=== PATIENT | female | born 1980 | race Caucasian/White ===

== ENCOUNTER 2016-11-25 10:58 | Emergency (ER) | payer OTHER ==
[~2016-11-25] VITALS: Ht 149.9 cm; Wt 59.0 kg
[2016-11-25 11:03] VITALS: BP 146/68; PULSE 94; RESP 18; TEMP 97.7; O2SAT 99
[2016-11-25] MEDS ORDERED: SODIUM CHLOR 0.9% 1000 ML INJ 1,000 ML IV ONE (11:49)
[2016-11-25] MEDS ORDERED: ONDANSETRON HCL 4 MG/2 ML VIAL IV PUSH ONE (12:00)
[2016-11-25] MEDS ORDERED: DIAZEPAM 5 MG TAB PO ONE (12:00)
[2016-11-25] MEDS ORDERED: diphenhydrAMINE HCL 50 MG/ML VIAL IVP ONE (12:00)
[2016-11-25] MEDS ORDERED: NARA2.5T PO (12:05)
--- NOTE | 2016-11-25 12:58 | PD ---
HPI Chief Complaint: Headache Time Seen by Provider: 12:00 Travel History International Travel<30 days: No Contact w/Intl Traveler<30days: No Traveled to known affect area: No History of Present Illness HPI 36-year-old female with history of migraines presents for evaluation of headache. Symptoms started this morning. She describes it as a pulsating right -sided frontal/occipital headache which is constant, associated with nausea, vomiting and photophobia. She reports that her current headache is consistent with her history of migraines. She has similar headaches about twice a month. She typically uses a triptan based medication to abort her migraine however she vomited up today which prompted evaluation. She is currently on vacation from [facility]. Denies recent illness, blurred vision, chest pain or shortness of breath, fevers or chills, abdominal pain. No other complaints. PFSH Past Medical History Migraines: Yes ?: Not LMP: LATE-OCTOBER 2016 Past Surgical History Surgical History: No Previous Surgery Social History Alcohol Use: No Tobacco Use: No Substance Use: No Allergies-Medications (Allergen,Severity, Reaction): Coded Allergies: Compazine (Verified Adverse Reaction, Unknown, AKASTHESIA, 11/25/16) PT REFUSES TO TAKE IT. Reported Meds & Prescriptions Reported Meds & Active Scripts Active Reported Naratriptan (Naratriptan HCl) 2.5 Mg Tab 2.5 Mg PO ONCE PRN May be repeated once after 4 hours, for a maximum of 5 mg in a 24-hour period. Review of Systems Except as stated in HPI: all other systems reviewed are Neg Physical Exam Narrative GENERAL: Well-developed well-nourished female in no acute distress SKIN: Warm and dry. HEAD: Atraumatic. Normocephalic. EYES: Pupils equal and round. No scleral icterus. No injection or drainage. ENT: No nasal bleeding or discharge. Mucous membranes pink and moist. NECK: Trachea midline. No JVD. CARDIOVASCULAR: Regular rate and rhythm. No murmur appreciated. RESPIRATORY: No accessory muscle use. Clear to auscultation. Breath sounds equal bilaterally. GASTROINTESTINAL: Abdomen soft, non-tender, nondistended. MUSCULOSKELETAL: No obvious deformities. NEUROLOGICAL: Awake and alert. No obvious cranial nerve deficits. Motor grossly within normal limits. Normal speech. Neck supple with full range of motion. Data Data Last Documented VS Vital Signs Date Time Temp Pulse Resp B/P Pulse Ox O2 Delivery O2 Flow Rate FiO2 11/25/16 12:25 Room Air 11/25/16 11:03 97.7 94 18 146/68 99 Orders Iv Access Insert/Monitor (11/25/16 11:49) Diphenhydramine Inj (Benadryl Inj) (11/25/16 12:00) Sodium Chlor 0.9% 1000 Ml Inj (Ns 1000 M (11/25/16 11:49) Ondansetron Inj (Zofran Inj) (11/25/16 12:00) Diazepam (Valium) (11/25/16 12:00) Ed Urine Pregnancytest Poc (11/25/16 11:49) MDM Medical Decision Making Medical Screen Exam Complete: Yes Emergency Medical Condition: Yes Medical Record Reviewed: Yes Differential Diagnosis Migraine without aura, tension headache, cluster headache, subarachnoid hemorrhage, pseudotumor cerebri, shingles, temporal arteritis Narrative Course 36-year-old female with long-standing history of migraines presents with a right -sided pulsating headache, nausea, vomiting, photophobia which started today, this is consistent with her previous migraines. Plan is to treat her symptomatically with IV Zofran, fluids, Benadryl, Toradol, Valium. Upon examination the patient continues to have a persistent right-sided headache. Morphine has been administered. She reports that the nausea is improved and she is declining any prescription for nausea medicine. She is stable for discharge into the care of her . Diagnosis Primary Impression: Migraine Qualified Code: G43.009 - Migraine without aura and without status migrainosus , not intractable Additional Instructions: Follow-up close with primary care physician, neurologist. Stay well hydrated. Return for any emergent medical conditions. Med/Other Pt SpecificInfo: No Change to Meds Disposition: 01 DISCHARGE HOME Condition: Stable Anil Leach November 25, 2016 12:58
[2016-11-25] MEDS ORDERED: MORPHINE SULFATE 4 MG/ML INJ IV PUSH ONE (13:30)
[2016-11-25 13:34] VITALS: BP 139/89; PULSE 93; RESP 16; O2SAT 100
[2016-11-25 13:50] VITALS: BP 127/84
== END 2016-11-25 14:10 | disposition home or self-care (01) ==
LOC: EDBD → NEPD 10:58
DX: G43.009 Migraine without aura, not intractable, without status migrainosus (principal)
CPT/HCPCS: 84703; 96361; 96374; 96375; 99283; J1200; J2270; J2405; J7030